=== PATIENT | female | born 1940 ===

== ENCOUNTER 2019-08-02 19:39 | Inpatient (IN) | payer MEDICARE, MEDICAID ==
[2019-08-03 07:25] VITALS: BP 147/71
[2019-08-03] MEDS: Lactobacillus Rhamnosus GG 15 Billion CFU CAP.SPRINK PO SCH (09:24)
[2019-08-03] MEDS: Benztropine 1 MG TAB PO SCH (09:25)
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
[2019-08-04] MEDS: Lactobacillus Rhamnosus GG 15 Billion CFU CAP.SPRINK PO SCH (09:26)
[2019-08-04] MEDS: Benztropine 1 MG TAB PO SCH (09:27)
--- NOTE | 2019-08-04 11:13 | Progress Notes ---
DATE: 08/04/2019 SUBJECTIVE: The patient was seen in her room. The patient is awake, but poor historian due to medical condition, appears to be guarded, easily gets frustrated, has behavioral outbursts. Otherwise, the patient is in no acute distress. OBJECTIVE: VITAL SIGNS: Temperature 97.1, heart rate of 88, respirations 18, blood pressure 98/63, 97% on room air. HEENT: Head is atraumatic and normocephalic. Eyes: Bilateral conjunctivae are clear. Bilateral pupils equal, round, reactive. NECK: Supple. No JVD. CARDIOVASCULAR: S1 and S2, without murmur. PULMONARY: Clear to auscultation. GASTROINTESTINAL: Soft and nontender without guarding. Positive bowel sounds. MUSCULOSKELETAL: No clubbing. No cyanosis noted. ASSESSMENT: 1. Dementia. 2. Osteoarthritis. 3. History of acute kidney failure. PLAN: We will continue to keep the patient to inpatient Psychiatric Unit. We will follow up with a psychiatrist to monitor the patient's condition and behavior. Treatment plans were discussed with the patient's nurse. Treatment plans were discussed with Dr. Rockwell. JOB# [id number]
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
[2019-08-05] MEDS: Benztropine 1 MG TAB PO SCH (08:32)
[2019-08-05] MEDS: Lactobacillus Rhamnosus GG 15 Billion CFU CAP.SPRINK PO SCH (08:32)
--- NOTE | 2019-08-05 12:45 | Progress Notes ---
DATE: 08/05/[address] Ahmadi. Overnight, nursing staff reported the patient has intermittent yelling and responding. Today, on [id number] evaluation, she is tearful, does not know why she is here, extremely poor historian. When attempted to discuss more detailed conversation, she derails. ASSESSMENT AND PLAN: History of schizophrenia who continues to have intermittent yelling and disorganized. We did more collateral baseline information. Per the returning physician, the patient is currently on 2 different antipsychotics -- the olanzapine and the Seroquel, which was transitioned from the outside. She denies any complications. No ____. May recommend monotherapy down the road. JOB# [id number]
--- NOTE | 2019-08-05 15:59 | Internal Medicine Prog Note ---
Internal Medicine Subjective - Subjective Service Date: 08/05/19 Patient seen and examined:: with staff Patient is:: awake, agitated, confused Patient Complaints of:: other (History of Dementia.) Per staff patient has:: agitated, noncompliant Internal Medicine Objective - Physical Exam Vitals and I&O: Vital Signs Temp 98.2 F 08/05/19 15:21 Pulse 103 08/05/19 15:21 Resp 19 08/05/19 15:21 BP 138/66 08/05/19 15:21 Pulse Ox 95 08/05/19 15:21 Intake & Output 08/04/19 08/05/19 08/05/19 18:59 06:59 18:59 Intake Total 240 Balance 240 Intake: Oral 240 Other: # Voids 2 Stool Characteristics Soft Active Medications: Current Medications Acetaminophen (Tylenol) 650 mg PO Q4HR PRN PRN Reason: Mild Pain (Scale 1-3) Stop: 10/02/19 08:17 Acetaminophen (Tylenol) 650 mg PO Q4H PRN PRN Reason: TEMP ABOVE 100 Stop: 10/02/19 08:37 Benztropine Mesylate (Cogentin) 1 mg PO DAILY [facility] Stop: 10/02/19 08:59 Last Admin: 08/05/19 08:32 Dose: 1 mg Donepezil HCl (Aricept) 10 mg PO DAILY [facility] Stop: 10/02/19 08:59 Last Admin: 08/05/19 08:32 Dose: 10 mg Lactobacillus Rhamnosus (Culturelle 15b) 1 each PO DAILY [facility] Stop: 10/02/19 08:59 Last Admin: 08/05/19 08:32 Dose: 1 each Lorazepam (Ativan) 0.5 mg PO Q4HR PRN; Protocol PRN Reason: Agitation Stop: 09/02/19 08:17 Last Admin: 08/04/19 19:28 Dose: 0.5 mg Nitrofurantoin Macrocrystals (Macrobid) 100 mg PO BID [facility]; Protocol Stop: 10/02/19 08:59 Last Admin: 08/05/19 08:31 Dose: 100 mg Olanzapine (Zyprexa) 5 mg PO DAILY [facility]; Protocol Stop: 10/02/19 08:59 Last Admin: 08/05/19 08:32 Dose: 5 mg Quetiapine Fumarate (Seroquel) 150 mg PO BID [facility]; Protocol Stop: 10/02/19 08:59 Last Admin: 08/05/19 08:32 Dose: 150 mg Zolpidem Tartrate (Ambien) 5 mg PO HS PRN PRN Reason: Insomnia Stop: 10/02/19 08:17 Physical Exam: Patient had episode of screaming and yelling again last night, is very demented , needs close monitoring. General: weak, demented HEENT: NC/AT Neck: Supple Lungs: CTAB Cardiovascular: RRR, Normal S1, Normal S2 Abdomen: soft, non-tender Extremities: clear Neurological: no change, disorganized, unable to follow command Internal Medicine Assmt/Plan - Assessment Assessment: Acute Psychosis. History of Toxic Encephalopathy. Acute kidney failure. Dementia. - Plan Plan: Continue meds as directed. Monitor vitals and labs. Supportive care. Monitor diet and nutritional supportive. Psych management as per Psych. Continue present care management. Nutritional Asmnt/Malnutr-PDOC - Dietary Evaluation Malnutrition Findings (Please click <Entered> for more info): see orders.
[2019-08-06] MEDS: Lactobacillus Rhamnosus GG 15 Billion CFU CAP.SPRINK PO SCH (08:56)
[2019-08-06] MEDS: Benztropine 1 MG TAB PO SCH (08:56)
--- NOTE | 2019-08-06 19:08 | Internal Medicine Prog Note ---
Internal Medicine Subjective - Subjective Service Date: 08/06/19 Patient seen and examined:: with staff Patient is:: awake, agitated, confused Patient Complaints of:: other (History of Dementia.) Per staff patient has:: agitated, noncompliant Internal Medicine Objective - Physical Exam Vitals and I&O: Vital Signs Temp 97.1 F 08/06/19 06:18 Pulse 88 08/06/19 06:18 Resp 18 08/06/19 08:00 BP 137/80 08/06/19 06:18 Pulse Ox 99 08/06/19 06:18 Intake & Output 08/06/19 08/06/19 08/07/19 06:59 18:59 06:59 Intake Total 300 580 Output Total 1 Balance 299 580 Intake: Oral 300 460 Other 120 Output: Urine/Stool Mix 1 Other: # Voids 2 3 # Bowel Movements 1 0 Stool Characteristics Soft Active Medications: Current Medications Acetaminophen (Tylenol) 650 mg PO Q4HR PRN PRN Reason: Mild Pain (Scale 1-3) Stop: 10/02/19 08:17 Acetaminophen (Tylenol) 650 mg PO Q4H PRN PRN Reason: TEMP ABOVE 100 Stop: 10/02/19 08:37 Benztropine Mesylate (Cogentin) 1 mg PO DAILY [facility] Stop: 10/02/19 08:59 Last Admin: 08/06/19 08:56 Dose: 1 mg Donepezil HCl (Aricept) 10 mg PO DAILY [facility] Stop: 10/02/19 08:59 Last Admin: 08/06/19 08:56 Dose: 10 mg Lactobacillus Rhamnosus (Culturelle 15b) 1 each PO DAILY [facility] Stop: 10/02/19 08:59 Last Admin: 08/06/19 08:56 Dose: 1 each Lorazepam (Ativan) 0.5 mg PO Q4HR PRN; Protocol PRN Reason: Agitation Stop: 09/02/19 08:17 Last Admin: 08/04/19 19:28 Dose: 0.5 mg Nitrofurantoin Macrocrystals (Macrobid) 100 mg PO BID [facility]; Protocol Stop: 10/02/19 08:59 Last Admin: 08/06/19 16:49 Dose: 100 mg Olanzapine (Zyprexa) 5 mg PO DAILY [facility]; Protocol Stop: 10/02/19 08:59 Last Admin: 08/06/19 08:56 Dose: 5 mg Quetiapine Fumarate (Seroquel) 150 mg PO BID [facility]; Protocol Stop: 10/02/19 08:59 Last Admin: 08/06/19 16:50 Dose: 150 mg Zolpidem Tartrate (Ambien) 5 mg PO HS PRN PRN Reason: Insomnia Stop: 10/02/19 08:17 Last Admin: 08/05/19 20:45 Dose: 5 mg Physical Exam: Patient is still very demented, hostile behavior, needs close monitoring. General: weak, demented HEENT: NC/AT Neck: Supple Lungs: CTAB Cardiovascular: RRR, Normal S1, Normal S2 Abdomen: soft, non-tender Extremities: clear Neurological: no change, disorganized, unable to follow command Internal Medicine Assmt/Plan - Assessment Assessment: Acute Psychosis. History of Toxic Encephalopathy. Acute kidney failure. Dementia. - Plan Plan: Continue meds as directed. Monitor vitals and labs. Supportive care. Monitor diet and nutritional supportive. Psych management as per Psych. Continue present care management. Nutritional Asmnt/Malnutr-PDOC - Dietary Evaluation Malnutrition Findings (Please click <Entered> for more info): see orders.
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
[2019-08-07] MEDS: Benztropine 1 MG TAB PO SCH (09:09)
[2019-08-07] MEDS: Lactobacillus Rhamnosus GG 15 Billion CFU CAP.SPRINK PO SCH (09:09)
--- NOTE | 2019-08-07 17:32 | Internal Medicine Prog Note ---
Internal Medicine Subjective - Subjective Service Date: 08/07/19 Patient is:: awake, agitated, confused Patient Complaints of:: other (History of Dementia.) Per staff patient has:: agitated, noncompliant Internal Medicine Objective - Results Recent Labs: Laboratory Last Values POC Glucose 91 MG/DL (70 - 105) 08/07/19 14:15 - Physical Exam Vitals and I&O: Vital Signs Temp 97.8 F 08/07/19 13:55 Pulse 95 08/07/19 13:55 Resp 20 08/07/19 13:55 BP 123/66 08/07/19 13:55 Pulse Ox 98 08/07/19 13:55 Intake & Output 08/06/19 08/07/19 08/07/19 18:59 06:59 18:59 Intake Total 580 240 Balance 580 240 Intake: Oral 460 240 Other 120 Other: # Voids 3 2 # Bowel Movements 0 Active Medications: Current Medications Acetaminophen (Tylenol) 650 mg PO Q4HR PRN PRN Reason: Mild Pain (Scale 1-3) Stop: 10/02/19 08:17 Acetaminophen (Tylenol) 650 mg PO Q4H PRN PRN Reason: TEMP ABOVE 100 Stop: 10/02/19 08:37 Benztropine Mesylate (Cogentin) 1 mg PO DAILY [facility] Stop: 10/02/19 08:59 Last Admin: 08/07/19 09:09 Dose: 1 mg Donepezil HCl (Aricept) 10 mg PO DAILY [facility] Stop: 10/02/19 08:59 Last Admin: 08/07/19 09:09 Dose: 10 mg Donepezil HCl (Aricept) 5 mg PO HS [facility] Stop: 10/06/19 20:59 Lactobacillus Rhamnosus (Culturelle 15b) 1 each PO DAILY [facility] Stop: 10/02/19 08:59 Last Admin: 08/07/19 09:09 Dose: 1 each Lorazepam (Ativan) 0.5 mg PO Q4HR PRN; Protocol PRN Reason: Agitation Stop: 09/02/19 08:17 Last Admin: 08/07/19 09:09 Dose: 0.5 mg Nitrofurantoin Macrocrystals (Macrobid) 100 mg PO BID [facility]; Protocol Stop: 10/02/19 08:59 Last Admin: 08/07/19 16:29 Dose: 100 mg Olanzapine (Zyprexa) 5 mg PO DAILY [facility]; Protocol Stop: 10/02/19 08:59 Last Admin: 08/07/19 09:08 Dose: 5 mg Quetiapine Fumarate (Seroquel) 150 mg PO BID [facility]; Protocol Stop: 10/02/19 08:59 Last Admin: 08/07/19 16:29 Dose: 150 mg Zolpidem Tartrate (Ambien) 5 mg PO HS PRN PRN Reason: Insomnia Stop: 10/02/19 08:17 Last Admin: 08/06/19 20:30 Dose: 5 mg General: weak, demented HEENT: NC/AT Neck: Supple Lungs: CTAB Cardiovascular: RRR, Normal S1, Normal S2 Abdomen: soft, non-tender Extremities: clear Neurological: no change, disorganized, unable to follow command
--- NOTE | 2019-08-07 21:36 | Progress Notes ---
DATE: 08/04/2019 SUBJECTIVE: Case was discussed with staff of the patient, reviewed records. The patient continues to be confused. She is demented. Continues to be unpredictable, impulsive, needing redirection, unable to make safe plan for self-care, easily agitated. I will be adding Aricept to her medication. So far no side effects with the medication, no sedation, no nausea, no extrapyramidal symptoms. I will continue outpatient group therapy, milieu therapy, and adjust her medication as needed. JOB# [id number]
--- NOTE | 2019-08-08 06:41 | Progress Notes ---
DATE: 08/08/2019 SUBJECTIVE: Chart was reviewed and the patient interviewed. Also discussed the patient's condition with the staff and reviewed records and labs. The patient is still severely irritable and severely agitated. The patient also is confused and she disheveled and she has a gown on the floor. Also, during my interview, the patient started yelling and screaming for no reason. She also still has difficulty following directions. Otherwise, the patient is compliant with taking her medications with no side effects. ASSESSMENT: The patient is still agitated and needs close monitoring. TREATMENT PLAN: We will monitor the patient's behavior and condition closely. Also, we will increase Zyprexa to 5 mg twice a day and decrease Aricept to 10 mg every day. The patient is taking both Zyprexa and Seroquel and it seems that Seroquel by itself was not helpful enough for the patient to control her agitation and irritability. JOB# [id number]
[2019-08-08] MEDS: Lactobacillus Rhamnosus GG 15 Billion CFU CAP.SPRINK PO SCH (09:00)
--- NOTE | 2019-08-08 09:52 | Internal Medicine Prog Note ---
Internal Medicine Subjective - Subjective Service Date: 08/08/19 Patient seen and examined:: with staff Patient is:: awake, agitated, confused Patient Complaints of:: other (History of Dementia.) Per staff patient has:: agitated, noncompliant Internal Medicine Objective - Results Recent Labs: Laboratory Last Values POC Glucose 91 MG/DL (70 - 105) 08/07/19 14:15 - Physical Exam Vitals and I&O: Vital Signs Temp 97.9 F 08/08/19 06:52 Pulse 81 08/08/19 06:52 Resp 20 08/08/19 06:52 BP 143/60 08/08/19 06:52 Pulse Ox 97 08/08/19 06:52 Intake & Output 08/07/19 08/08/19 08/08/19 18:59 06:59 18:59 Intake Total 240 Balance 240 Intake: Oral 240 Other: # Voids 3 2 # Bowel Movements 0 0 Active Medications: Current Medications Acetaminophen (Tylenol) 650 mg PO Q4HR PRN PRN Reason: Mild Pain (Scale 1-3) Stop: 10/02/19 08:17 Acetaminophen (Tylenol) 650 mg PO Q4H PRN PRN Reason: TEMP ABOVE 100 Stop: 10/02/19 08:37 Benztropine Mesylate (Cogentin) 1 mg PO DAILY [facility] Stop: 10/02/19 08:59 Last Admin: 08/07/19 09:09 Dose: 1 mg Donepezil HCl (Aricept) 10 mg PO DAILY [facility] Stop: 10/02/19 08:59 Last Admin: 08/07/19 09:09 Dose: 10 mg Lactobacillus Rhamnosus (Culturelle 15b) 1 each PO DAILY [facility] Stop: 10/02/19 08:59 Last Admin: 08/07/19 09:09 Dose: 1 each Lorazepam (Ativan) 0.5 mg PO Q4HR PRN; Protocol PRN Reason: Agitation Stop: 09/02/19 08:17 Last Admin: 08/07/19 21:19 Dose: 0.5 mg Nitrofurantoin Macrocrystals (Macrobid) 100 mg PO BID [facility]; Protocol Stop: 10/02/19 08:59 Last Admin: 08/07/19 16:29 Dose: 100 mg Olanzapine (Zyprexa) 5 mg PO BID [facility]; Protocol Stop: 10/07/19 08:59 Quetiapine Fumarate (Seroquel) 150 mg PO BID [facility]; Protocol Stop: 10/02/19 08:59 Last Admin: 08/07/19 16:29 Dose: 150 mg Zolpidem Tartrate (Ambien) 5 mg PO HS PRN PRN Reason: Insomnia Stop: 10/02/19 08:17 Last Admin: 08/07/19 22:20 Dose: 5 mg Physical Exam: Patient is very agitated and irritable, needs close monitoring. General: weak, demented HEENT: NC/AT Neck: Supple Lungs: CTAB Cardiovascular: RRR, Normal S1, Normal S2 Abdomen: soft, non-tender Extremities: clear Neurological: no change, disorganized, unable to follow command Internal Medicine Assmt/Plan - Assessment Assessment: Acute Psychosis. History of Toxic Encephalopathy. Acute kidney failure. Dementia. - Plan Plan: Continue meds as directed. Monitor vitals and labs. Supportive care. Monitor diet and nutritional supportive. Psych management as per Psych. Continue present care management. Nutritional Asmnt/Malnutr-PDOC - Dietary Evaluation Malnutrition Findings (Please click <Entered> for more info): see orders.
[2019-08-08] MEDS: Benztropine 1 MG TAB PO SCH (11:03)
[2019-08-09] MEDS: Lactobacillus Rhamnosus GG 15 Billion CFU CAP.SPRINK PO SCH (09:42)
[2019-08-09] MEDS: Benztropine 1 MG TAB PO SCH (09:42)
--- NOTE | 2019-08-09 10:42 | Internal Medicine Prog Note ---
Internal Medicine Subjective - Subjective Service Date: 08/09/19 Patient seen and examined:: with staff Patient is:: awake, agitated, confused Patient Complaints of:: other (History of Dementia.) Per staff patient has:: agitated, noncompliant Internal Medicine Objective - Results Recent Labs: Laboratory Last Values POC Glucose 91 MG/DL (70 - 105) 08/07/19 14:15 - Physical Exam Vitals and I&O: Vital Signs Temp 97.7 F 08/09/19 06:51 Pulse 78 08/09/19 06:51 Resp 20 08/09/19 06:51 BP 128/81 08/09/19 06:51 Pulse Ox 95 08/09/19 06:51 Intake & Output 08/08/19 08/09/19 08/09/19 18:59 06:59 18:59 Intake Total 800 240 Balance 800 240 Intake: Oral 800 240 Other: # Voids 3 2 # Bowel Movements 1 0 Active Medications: Current Medications Acetaminophen (Tylenol) 650 mg PO Q4HR PRN PRN Reason: Mild Pain (Scale 1-3) Stop: 10/02/19 08:17 Acetaminophen (Tylenol) 650 mg PO Q4H PRN PRN Reason: TEMP ABOVE 100 Stop: 10/02/19 08:37 Benztropine Mesylate (Cogentin) 1 mg PO DAILY [facility] Stop: 10/02/19 08:59 Last Admin: 08/09/19 09:42 Dose: 1 mg Donepezil HCl (Aricept) 10 mg PO DAILY [facility] Stop: 10/02/19 08:59 Last Admin: 08/09/19 09:42 Dose: 10 mg Lactobacillus Rhamnosus (Culturelle 15b) 1 each PO DAILY [facility] Stop: 10/02/19 08:59 Last Admin: 08/09/19 09:42 Dose: 1 each Lorazepam (Ativan) 0.5 mg PO Q4HR PRN; Protocol PRN Reason: Agitation Stop: 09/02/19 08:17 Last Admin: 08/07/19 21:19 Dose: 0.5 mg Nitrofurantoin Macrocrystals (Macrobid) 100 mg PO BID [facility]; Protocol Stop: 10/02/19 08:59 Last Admin: 08/09/19 09:42 Dose: 100 mg Olanzapine (Zyprexa) 5 mg PO BID [facility]; Protocol Stop: 10/07/19 08:59 Last Admin: 08/09/19 09:42 Dose: 5 mg Quetiapine Fumarate (Seroquel) 150 mg PO BID [facility]; Protocol Stop: 10/02/19 08:59 Last Admin: 08/09/19 09:42 Dose: 150 mg Zolpidem Tartrate (Ambien) 5 mg PO HS PRN PRN Reason: Insomnia Stop: 10/02/19 08:17 Last Admin: 08/08/19 21:19 Dose: 5 mg Physical Exam: Patient is aggressive and easily frustrated, needs close monitoring. General: weak, demented HEENT: NC/AT Neck: Supple Lungs: CTAB Cardiovascular: RRR, Normal S1, Normal S2 Abdomen: soft, non-tender Extremities: clear Neurological: no change, disorganized, unable to follow command Internal Medicine Assmt/Plan - Assessment Assessment: Acute Psychosis. History of Toxic Encephalopathy. Acute kidney failure. Dementia. - Plan Plan: Continue meds as directed. Monitor vitals and labs. Supportive care. Monitor diet and nutritional supportive. Psych management as per Psych. Continue present care management. Nutritional Asmnt/Malnutr-PDOC - Dietary Evaluation Malnutrition Findings (Please click <Entered> for more info): Nutritional Asmnt/Malnutrition Start: 08/08/19 15: 40 Text: Status: Complete Freq: Protocol: Document 08/08/19 15:40 KARTHIKEYAN (Rec: 08/08/19 15:43 KARTHIKEYAN [id number]) Nutritional Asmnt/Malnutrition Patient General Information Nutritional Screening Low Risk Diagnosis Psychosis Pertinent Medical Hx/Surgical Hx Dementia, Psychosis, Toxic Encephalopathy, Frequent Falls , AKF Subjective Information Pt is [id number] female admitted on 08/03 d/t aggressive behavior. Pt is eating an estimated 75% of meals x3 days Per Meal/ Nutrition Activity Record. Dietary is currently providing an estimated 2700 kcals and 130 gm Pro, per Pt PO intake this is providing an estimated 2025 kcals and 98gm Pro to meet 100+% kcal and 100+% Pro needs. Anthropometrics HT: 51 WT: 105 LB (47.73 kg) BMI: 19.84 (Normal) GI/ Skin Integrity GI: WNL, Flat, soft BM: / x1 I/O: 240/Not Noted Skin: WNL, dryness Carlo: 14 Diet Order: Regular Estimated Energy Needs: ( Geriatric, CBW) 4175-3148 kcals (25-30 kcals/ kg) 45-55g Pro (1.0-1.2 g/kg) 7843-1222 ml (25-30 ml/kg) Current Diet Order/ Nutrition Support Regular Pertinent Medications Culturelle 15b Pertinent Labs POC Glucose (last 24 hours): 91 Nutritional Hx/Data Height 1.55 m Height (Calculated Centimeters) 154.9 Current Weight (lbs) 47.627 kg Weight (Calculated Kilograms) 47.6 Weight (Calculated Grams) 62007.2 [place] Body Weight 105 LB (47.73 kg) % [place] Body Weight 100 Body Mass Index (BMI) 19.8 Weight Status Approriate GI Symptoms Skin Integrity/Comment: Skin: WNL, dryness Carlo: 14 Current %PO Good (75-100%) Estimated Nutritional Goals BEE in Kcals: Using Current wt Calories/Kcals/Kg 25-30 Kcals Calculated 6489-5922 Protein: Using Current wt Protein g/k.0-1.2 Protein Calculated 45-55 Fluid: ml 5725-8675 ml (25-30 ml/kg) Nutritional Problem No current Nutrition Prob Problem No nutrition diagnosis at this time. Etiology N/A Signs/Symptoms: N/A Malnutrition Related to Morbid Obesity Malnutrition related to morbid obesity No Intervention/Recommendation Comments Continue regular diet as tolerated. Expected Outcomes/Goals Expected Outcomes/Goals 1 .PO intake to continue to meet >75% of estimated nutritional needs. 2. Monitor PO intake, wt, nutrition related labs, and skin integrity. 3. F/U as low risk in 7-10 days, 08/15-
[2019-08-10] MEDS: Lactobacillus Rhamnosus GG 15 Billion CFU CAP.SPRINK PO SCH (08:15)
[2019-08-10] MEDS: Benztropine 1 MG TAB PO SCH (08:15)
--- NOTE | 2019-08-10 19:24 | Internal Medicine Prog Note ---
Internal Medicine Subjective - Subjective Service Date: 08/10/19 Patient seen and examined:: with staff Patient is:: awake, agitated, confused Patient Complaints of:: other (History of Dementia.) Per staff patient has:: no adverse event, no episodes of fall, agitated, noncompliant Internal Medicine Objective - Results Recent Labs: Laboratory Last Values POC Glucose 91 MG/DL (70 - 105) 08/07/19 14:15 - Physical Exam Vitals and I&O: Vital Signs Temp 97.1 F 08/10/19 14:00 Pulse 90 08/10/19 14:00 Resp 20 08/10/19 14:00 BP 107/49 08/10/19 14:00 Pulse Ox 98 08/10/19 14:00 Intake & Output 08/10/19 08/10/19 08/11/19 06:59 18:59 06:59 Intake Total 240 1200 Balance 240 1200 Intake: Oral 240 1200 Other: # Voids 2 # Bowel Movements 0 1 Active Medications: Current Medications Acetaminophen (Tylenol) 650 mg PO Q4HR PRN PRN Reason: Mild Pain (Scale 1-3) Stop: 10/02/19 08:17 Acetaminophen (Tylenol) 650 mg PO Q4H PRN PRN Reason: TEMP ABOVE 100 Stop: 10/02/19 08:37 Benztropine Mesylate (Cogentin) 1 mg PO DAILY [facility] Stop: 10/02/19 08:59 Last Admin: 08/10/19 08:15 Dose: 1 mg Donepezil HCl (Aricept) 10 mg PO DAILY [facility] Stop: 10/02/19 08:59 Last Admin: 08/10/19 08:15 Dose: 10 mg Lactobacillus Rhamnosus (Culturelle 15b) 1 each PO DAILY [facility] Stop: 10/02/19 08:59 Last Admin: 08/10/19 08:15 Dose: 1 each Lorazepam (Ativan) 0.5 mg PO Q4HR PRN; Protocol PRN Reason: Agitation Stop: 09/02/19 08:17 Last Admin: 08/07/19 21:19 Dose: 0.5 mg Nitrofurantoin Macrocrystals (Macrobid) 100 mg PO BID [facility]; Protocol Stop: 10/02/19 08:59 Last Admin: 08/10/19 17:17 Dose: 100 mg Quetiapine Fumarate (Seroquel) 100 mg PO DAILY [facility]; Protocol Stop: 10/09/19 08:59 Last Admin: 08/10/19 08:15 Dose: 100 mg Quetiapine Fumarate (Seroquel) 200 mg PO HS [facility]; Protocol Stop: 10/09/19 20:59 Zolpidem Tartrate (Ambien) 5 mg PO HS PRN PRN Reason: Insomnia Stop: 10/02/19 08:17 Last Admin: 08/08/19 21:19 Dose: 5 mg Physical Exam: Patient needs close monitoring, remains very irritable and hostile. General: weak, demented HEENT: NC/AT Neck: Supple Lungs: CTAB Cardiovascular: RRR, Normal S1, Normal S2 Abdomen: soft, non-tender Extremities: clear Neurological: no change, disorganized, unable to follow command Internal Medicine Assmt/Plan - Assessment Assessment: Acute Psychosis. History of Toxic Encephalopathy. Acute kidney failure. Dementia. - Plan Plan: Continue meds as directed. Monitor vitals and labs. Supportive care. Monitor diet and nutritional supportive. Psych management as per Psych. Continue present care management. Nutritional Asmnt/Malnutr-PDOC - Dietary Evaluation Malnutrition Findings (Please click <Entered> for more info): Nutritional Asmnt/Malnutrition Start: 08/08/19 15: 40 Text: Status: Complete Freq: Protocol: Document 08/08/19 15:40 KARTHIKEYAN (Rec: 08/08/19 15:43 KARTHIKEYAN [id number]) Nutritional Asmnt/Malnutrition Patient General Information Nutritional Screening Low Risk Diagnosis Psychosis Pertinent Medical Hx/Surgical Hx Dementia, Psychosis, Toxic Encephalopathy, Frequent Falls , AKF Subjective Information Pt is [id number] female admitted on 08/03 d/t aggressive behavior. Pt is eating an estimated 75% of meals x3 days Per Meal/ Nutrition Activity Record. Dietary is currently providing an estimated 2700 kcals and 130 gm Pro, per Pt PO intake this is providing an estimated 2025 kcals and 98gm Pro to meet 100+% kcal and 100+% Pro needs. Anthropometrics HT: 51 WT: 105 LB (47.73 kg) BMI: 19.84 (Normal) GI/ Skin Integrity GI: WNL, Flat, soft BM: 08/06 x1 I/O: 240/Not Noted Skin: WNL, dryness Carlo: 14 Diet Order: Regular Estimated Energy Needs: ( Geriatric, CBW) 5264-3461 kcals (25-30 kcals/ kg) 45-55g Pro (1.0-1.2 g/kg) 6401-4679 ml (25-30 ml/kg) Current Diet Order/ Nutrition Support Regular Pertinent Medications Culturelle 15b Pertinent Labs POC Glucose (last 24 hours): 91 Nutritional Hx/Data Height 1.55 m Height (Calculated Centimeters) 154.9 Current Weight (lbs) 47.627 kg Weight (Calculated Kilograms) 47.6 Weight (Calculated Grams) 31808.2 [place] Body Weight 105 LB (47.73 kg) % [place] Body Weight 100 Body Mass Index (BMI) 19.8 Weight Status Approriate GI Symptoms Skin Integrity/Comment: Skin: WNL, dryness Carlo: 14 Current %PO Good (75-100%) Estimated Nutritional Goals BEE in Kcals: Using Current wt Calories/Kcals/Kg 25-30 Kcals Calculated 5407-9203 Protein: Using Current wt Protein g/k.0-1.2 Protein Calculated 45-55 Fluid: ml 6686-5406 ml (25-30 ml/kg) Nutritional Problem No current Nutrition Prob Problem No nutrition diagnosis at this time. Etiology N/A Signs/Symptoms: N/A Malnutrition Related to Morbid Obesity Malnutrition related to morbid obesity No Intervention/Recommendation Comments Continue regular diet as tolerated. Expected Outcomes/Goals Expected Outcomes/Goals 1 .PO intake to continue to meet >75% of estimated nutritional needs. 2. Monitor PO intake, wt, nutrition related labs, and skin integrity. 3. F/U as low risk in 7-10 days, 08/15-
[2019-08-11] MEDS: Benztropine 1 MG TAB PO SCH (09:07)
[2019-08-11] MEDS: Lactobacillus Rhamnosus GG 15 Billion CFU CAP.SPRINK PO SCH (09:07)
--- NOTE | 2019-08-11 22:23 | Progress Notes ---
DATE: 08/11/2019 SUBJECTIVE: The patient is currently in the hospital, very irritable, agitated, confused, unkempt, yelling at me "what do you want, get out," refusing to speak with me. Staff noting irritability, angry, upset, not wanting to take any medicine. ASSESSMENT: The patient remains symptomatic, irritable, agitated, ongoing symptoms. JOB# [id number]
--- NOTE | 2019-08-11 22:43 | Progress Notes ---
DATE: 08/11/2019 SUBJECTIVE: The patient was seen in her room. The patient is asleep, but easily arousable. The patient is very confused, poor historian, easily gets frustrated and agitated. Otherwise, the patient is in no acute distress. OBJECTIVE: VITAL SIGNS: Temperature 97.2, heart rate of 80, blood pressure 119/64, respirations 18, and 96% on room air. HEENT: Head is atraumatic and normocephalic. Eyes: Bilateral conjunctivae are clear. Bilateral pupils are equally round and reactive. NECK: Supple. No JVD. CARDIOVASCULAR: S1 and S2, without murmur. PULMONARY: Clear to auscultation. GASTROINTESTINAL: Soft and nontender without guarding. Positive bowel sounds. MUSCULOSKELETAL: No clubbing. No cyanosis noted. ASSESSMENT: 1. Dementia. 2. Osteoarthritis. PLAN: We will keep the patient inpatient to Psychiatric Unit and we will follow up with a psychiatrist to monitor the patient's condition and behavior. Treatment plans were discussed with the patient's nurse. Treatment plans were discussed with Dr. Rockwell. JOB# [id number]
[2019-08-12] MEDS: Lactobacillus Rhamnosus GG 15 Billion CFU CAP.SPRINK PO SCH (09:10)
[2019-08-12] MEDS: Benztropine 1 MG TAB PO SCH (09:10)
--- NOTE | 2019-08-12 12:57 | Internal Medicine Prog Note ---
Internal Medicine Subjective - Subjective Patient is:: awake, agustina chair, agitated, confused Patient Complaints of:: other (History of Dementia.) Per staff patient has:: no adverse event, no episodes of fall, agitated, noncompliant Internal Medicine Objective - Results Recent Labs: Laboratory Last Values POC Glucose 91 MG/DL (70 - 105) 08/07/19 14:15 - Physical Exam Vitals and I&O: Vital Signs Temp 98.1 F 08/11/19 20:00 Pulse 94 08/11/19 20:00 Resp 18 08/11/19 20:00 BP 136/82 08/11/19 20:00 Pulse Ox 97 08/11/19 20:00 Intake & Output 08/11/19 08/12/19 08/12/19 18:59 06:59 18:59 Intake Total 1000 120 Balance 1000 120 Intake: Oral 1000 120 Other: # Voids 3 3 # Bowel Movements 1 Active Medications: Current Medications Acetaminophen (Tylenol) 650 mg PO Q4HR PRN PRN Reason: Mild Pain (Scale 1-3) Stop: 10/02/19 08:17 Acetaminophen (Tylenol) 650 mg PO Q4H PRN PRN Reason: TEMP ABOVE 100 Stop: 10/02/19 08:37 Benztropine Mesylate (Cogentin) 1 mg PO DAILY [facility] Stop: 10/02/19 08:59 Last Admin: 08/12/19 09:10 Dose: 1 mg Donepezil HCl (Aricept) 10 mg PO DAILY [facility] Stop: 10/02/19 08:59 Last Admin: 08/12/19 09:10 Dose: 10 mg Lactobacillus Rhamnosus (Culturelle 15b) 1 each PO DAILY [facility] Stop: 10/02/19 08:59 Last Admin: 08/12/19 09:10 Dose: 1 each Lorazepam (Ativan) 0.5 mg PO Q4HR PRN; Protocol PRN Reason: Agitation Stop: 09/02/19 08:17 Last Admin: 08/07/19 21:19 Dose: 0.5 mg Quetiapine Fumarate (Seroquel) 100 mg PO DAILY [facility]; Protocol Stop: 10/09/19 08:59 Last Admin: 08/12/19 09:10 Dose: 100 mg Quetiapine Fumarate (Seroquel) 200 mg PO HS [facility]; Protocol Stop: 10/09/19 20:59 Last Admin: 08/11/19 21:23 Dose: 200 mg Zolpidem Tartrate (Ambien) 5 mg PO HS PRN PRN Reason: Insomnia Stop: 10/02/19 08:17 Last Admin: 08/11/19 23:52 Dose: 5 mg General: weak, demented, NAD HEENT: NC/AT Neck: Supple Lungs: other (no acute respiratory distress) Cardiovascular: RRR Abdomen: soft, non-tender Extremities: clear Neurological: no change, disorganized, unable to follow command Internal Medicine Assmt/Plan - Assessment Assessment: Dementia OA - Plan Plan: Continue current treatment plan. Monitor Labs. Continue current medications Continue to monitor VS Monitor Diet/Nutritional support. Psych management per Psychiatry. Pain Management. PT/OT prn Safety precaution, Fall precaution, frequent nursing round. Supportive care. Continue collaborating with consulting specialists, case management and nursing team Nutritional Asmnt/Malnutr-PDOC - Dietary Evaluation Malnutrition Findings (Please click <Entered> for more info): Nutritional Asmnt/Malnutrition Start: 08/08/19 15: 40 Text: Status: Complete Freq: Protocol: Document 08/08/19 15:40 KARTHIKEYAN (Rec: 08/08/19 15:43 KARTHIKEYAN [id number]) Nutritional Asmnt/Malnutrition Patient General Information Nutritional Screening Low Risk Diagnosis Psychosis Pertinent Medical Hx/Surgical Hx Dementia, Psychosis, Toxic Encephalopathy, Frequent Falls , AKF Subjective Information Pt is [id number] female admitted on 08/03 d/t aggressive behavior. Pt is eating an estimated 75% of meals x3 days Per Meal/ Nutrition Activity Record. Dietary is currently providing an estimated 2700 kcals and 130 gm Pro, per Pt PO intake this is providing an estimated 2025 kcals and 98gm Pro to meet 100+% kcal and 100+% Pro needs. Anthropometrics HT: 51 WT: 105 LB (47.73 kg) BMI: 19.84 (Normal) GI/ Skin Integrity GI: WNL, Flat, soft BM: 08/06 x1 I/O: 240/Not Noted Skin: WNL, dryness Carlo: 14 Diet Order: Regular Estimated Energy Needs: ( Geriatric, CBW) 5100-8524 kcals (25-30 kcals/ kg) 45-55g Pro (1.0-1.2 g/kg) 0543-1094 ml (25-30 ml/kg) Current Diet Order/ Nutrition Support Regular Pertinent Medications Culturelle 15b Pertinent Labs POC Glucose (last 24 hours): 91 Nutritional Hx/Data Height 5 ft 1 in Height (Calculated Centimeters) 154.9 Current Weight (lbs) 105 lb Weight (Calculated Kilograms) 47.6 Weight (Calculated Grams) 34561.2 [place] Body Weight 105 LB (47.73 kg) % [place] Body Weight 100 Body Mass Index (BMI) 19.8 Weight Status Approriate GI Symptoms Skin Integrity/Comment: Skin: WNL, dryness Carlo: 14 Current %PO Good (75-100%) Estimated Nutritional Goals BEE in Kcals: Using Current wt Calories/Kcals/Kg 25-30 Kcals Calculated 0720-0867 Protein: Using Current wt Protein g/k.0-1.2 Protein Calculated 45-55 Fluid: ml 9555-1370 ml (25-30 ml/kg) Nutritional Problem No current Nutrition Prob Problem No nutrition diagnosis at this time. Etiology N/A Signs/Symptoms: N/A Malnutrition Related to Morbid Obesity Malnutrition related to morbid obesity No Intervention/Recommendation Comments Continue regular diet as tolerated. Expected Outcomes/Goals Expected Outcomes/Goals 1 .PO intake to continue to meet >75% of estimated nutritional needs. 2. Monitor PO intake, wt, nutrition related labs, and skin integrity. 3. F/U as low risk in 7-10 days, 08/15-
--- NOTE | 2019-08-13 08:04 | Progress Notes ---
DATE: DATE: 08/09/2019 SUBJECTIVE: Chart was reviewed. The patient interviewed. Also discussed the patient's condition with the staff and reviewed records and labs. The patient is still in irritable mood and she is still confused. The patient also still has disorganized thoughts. The patient also is still easily agitated and she is still easily irritable. Also, she is still having episodes of cursing at staff and yelling and screaming for no apparent reason. Otherwise, the patient continued to comply with taking her medications with no side effects of medications. ASSESSMENT: The patient is still agitated and is still in irritable mood. TREATMENT PLAN: Continue monitoring her behavior and her condition closely. Also, Zyprexa was increased yesterday to 5 mg twice a day and Aricept was increased to 10 mg every day with no side effects. We will continue same dose and continue to monitor her behavior and condition closely. [facility]# [id number]
--- NOTE | 2019-08-13 08:04 | Progress Notes ---
DATE: 08/12/2019 SUBJECTIVE: The patient is irritable, stating that she is sleeping, does not want to engage with me, whatsoever, yelling at me "go away, I'm trying to sleep," very irritable, ongoing symptoms, concerns about her ability to really be cared for at a lower level of care, still needing a Trina chair at times, erratic sleep, anxious, hyperverbal, yelling loudly. PLAN: We will continue to monitor. Continue dosing of Seroquel. I will increase her nighttime dosing of Seroquel to 225 mg, continue IM dosing as it is. JOB# [id number]
--- NOTE | 2019-08-13 08:04 | Progress Notes ---
DATE: 08/10/2019 SUBJECTIVE: Chart reviewed and the patient interviewed. Also discussed the patient's condition with the staff and reviewed records and labs. The patient is still easily agitated and is still restless. The patient also has not been able to sleep well despite of taking Ambien. The patient also still has mood swings and she is still restless. Otherwise, the patient is compliant with taking her medications with no side effects of medications. ASSESSMENT: The patient is still restless and is still in a depressed mood and agitated. TREATMENT PLAN: We will continue monitoring her behavior and condition closely. Also, we will discontinue Zyprexa since the patient is taking Seroquel and we will change Seroquel to 100 mg in the morning and 200 mg at bedtime and we will continue to follow up closely. [facility]# [id number]
[2019-08-13] MEDS: Benztropine 1 MG TAB PO SCH (08:05)
[2019-08-13] MEDS: Lactobacillus Rhamnosus GG 15 Billion CFU CAP.SPRINK PO SCH (08:06)
--- NOTE | 2019-08-13 11:00 | Internal Medicine Prog Note ---
Internal Medicine Subjective - Subjective Service Date: 08/13/19 Patient seen and examined:: with staff Patient is:: awake, agustina chair, agitated, confused Patient Complaints of:: other (History of Dementia.) Per staff patient has:: no adverse event, no episodes of fall, agitated, noncompliant Internal Medicine Objective - Results Recent Labs: Laboratory Last Values POC Glucose 91 MG/DL (70 - 105) 08/07/19 14:15 - Physical Exam Vitals and I&O: Vital Signs Temp 98.1 F 08/13/19 06:47 Pulse 90 08/13/19 06:47 Resp 18 08/13/19 06:47 BP 108/68 08/13/19 06:47 Pulse Ox 99 08/13/19 06:47 Intake & Output 08/12/19 08/13/19 08/13/19 18:59 06:59 18:59 Intake Total 900 120 Balance 900 120 Intake: Oral 900 120 Other: # Voids 3 Active Medications: Current Medications Acetaminophen (Tylenol) 650 mg PO Q4HR PRN PRN Reason: Mild Pain (Scale 1-3) Stop: 10/02/19 08:17 Acetaminophen (Tylenol) 650 mg PO Q4H PRN PRN Reason: TEMP ABOVE 100 Stop: 10/02/19 08:37 Benztropine Mesylate (Cogentin) 1 mg PO DAILY [facility] Stop: 10/02/19 08:59 Last Admin: 08/13/19 08:05 Dose: 1 mg Donepezil HCl (Aricept) 10 mg PO DAILY [facility] Stop: 10/02/19 08:59 Last Admin: 08/13/19 08:05 Dose: 10 mg Lactobacillus Rhamnosus (Culturelle 15b) 1 each PO DAILY [facility] Stop: 10/02/19 08:59 Last Admin: 08/13/19 08:06 Dose: 1 each Lorazepam (Ativan) 0.5 mg PO Q4HR PRN; Protocol PRN Reason: Agitation Stop: 09/02/19 08:17 Last Admin: 08/07/19 21:19 Dose: 0.5 mg Quetiapine Fumarate (Seroquel) 100 mg PO DAILY [facility]; Protocol Stop: 10/09/19 08:59 Last Admin: 08/13/19 08:06 Dose: 100 mg Quetiapine Fumarate 200 mg/ (Quetiapine Fumarate 25 mg) 225 mg PO HS [facility] Stop: 10/11/19 20:59 Last Admin: 08/12/19 21:01 Dose: 225 mg Zolpidem Tartrate (Ambien) 5 mg PO HS PRN PRN Reason: Insomnia Stop: 10/02/19 08:17 Last Admin: 08/12/19 21:02 Dose: 5 mg Physical Exam: Patient needs close monitoring, remains confused and weak. General: weak, demented, NAD HEENT: NC/AT Neck: Supple Lungs: other (no acute respiratory distress) Cardiovascular: RRR Abdomen: soft, non-tender Extremities: clear Neurological: no change, disorganized, unable to follow command Internal Medicine Assmt/Plan - Assessment Assessment: Acute Psychosis. History of Toxic Encephalopathy. Acute kidney failure. Dementia. - Plan Plan: Continue meds as directed. Monitor vitals and labs. Supportive care. Monitor diet and nutritional supportive. Psych management as per Psych. Continue present care management. Nutritional Asmnt/Malnutr-PDOC - Dietary Evaluation Malnutrition Findings (Please click <Entered> for more info): Nutritional Asmnt/Malnutrition Start: 08/08/19 15: 40 Text: Status: Complete Freq: Protocol: Document 08/08/19 15:40 KARTHIKEYAN (Rec: 08/08/19 15:43 KARTHIKEYAN [id number]) Nutritional Asmnt/Malnutrition Patient General Information Nutritional Screening Low Risk Diagnosis Psychosis Pertinent Medical Hx/Surgical Hx Dementia, Psychosis, Toxic Encephalopathy, Frequent Falls , AKF Subjective Information Pt is [id number] female admitted on 08/03 d/t aggressive behavior. Pt is eating an estimated 75% of meals x3 days Per Meal/ Nutrition Activity Record. Dietary is currently providing an estimated 2700 kcals and 130 gm Pro, per Pt PO intake this is providing an estimated 2025 kcals and 98gm Pro to meet 100+% kcal and 100+% Pro needs. Anthropometrics HT: 51 WT: 105 LB (47.73 kg) BMI: 19.84 (Normal) GI/ Skin Integrity GI: WNL, Flat, soft BM: 08/06 x1 I/O: 240/Not Noted Skin: WNL, dryness Carlo: 14 Diet Order: Regular Estimated Energy Needs: ( Geriatric, CBW) 7227-5491 kcals (25-30 kcals/ kg) 45-55g Pro (1.0-1.2 g/kg) 8499-1479 ml (25-30 ml/kg) Current Diet Order/ Nutrition Support Regular Pertinent Medications Culturelle 15b Pertinent Labs POC Glucose (last 24 hours): 91 Nutritional Hx/Data Height 1.55 m Height (Calculated Centimeters) 154.9 Current Weight (lbs) 47.627 kg Weight (Calculated Kilograms) 47.6 Weight (Calculated Grams) 08919.2 [place] Body Weight 105 LB (47.73 kg) % [place] Body Weight 100 Body Mass Index (BMI) 19.8 Weight Status Approriate GI Symptoms Skin Integrity/Comment: Skin: WNL, dryness Carlo: 14 Current %PO Good (75-100%) Estimated Nutritional Goals BEE in Kcals: Using Current wt Calories/Kcals/Kg 25-30 Kcals Calculated 1208-3676 Protein: Using Current wt Protein g/k.0-1.2 Protein Calculated 45-55 Fluid: ml 2403-5907 ml (25-30 ml/kg) Nutritional Problem No current Nutrition Prob Problem No nutrition diagnosis at this time. Etiology N/A Signs/Symptoms: N/A Malnutrition Related to Morbid Obesity Malnutrition related to morbid obesity No Intervention/Recommendation Comments Continue regular diet as tolerated. Expected Outcomes/Goals Expected Outcomes/Goals 1 .PO intake to continue to meet >75% of estimated nutritional needs. 2. Monitor PO intake, wt, nutrition related labs, and skin integrity. 3. F/U as low risk in 7-10 days, 08/15-
--- NOTE | 2019-08-13 22:14 | Progress Notes ---
DATE: SUBJECTIVE: Chart was reviewed and the patient interviewed. Also discussed the patient's condition with the staff and reviewed records and labs. The patient is still confused and forgetful. The patient also is still easily agitated and is still in angry and in irritable mood and when I tried to interview the patient, she screamed "get out of here." She is still restless and she still has severe mood swings and easily angry and easily irritable. Otherwise, the patient started to take her medications and according to staff, the patient did take Seroquel yesterday in a dose of 100 mg in the morning and 225 mg at bedtime. ASSESSMENT: The patient is still agitated and is still in irritable mood. TREATMENT PLAN: Continue to monitor her behavior and her condition closely. Also, continue adjusting psychotropic medications and work on behavioral modification and her compliance with taking her medications. JOB# [id number]
[2019-08-14] MEDS: Benztropine 1 MG TAB PO SCH (08:48)
[2019-08-14] MEDS: Lactobacillus Rhamnosus GG 15 Billion CFU CAP.SPRINK PO SCH (08:48)
--- NOTE | 2019-08-14 11:23 | Progress Notes ---
DATE: SUBJECTIVE: Chart reviewed and the patient interviewed. Also discussed the patient's condition with the staff and reviewed records and labs. The patient is still in angry and in irritable mood. The patient also is still having mood swings. She also is still confused and when tried to talk to her, she was restless, and she started rambling, cursing and screaming. Also, staff did report that the patient had these screaming and yelling episodes, especially during the day. Otherwise, the patient is more compliant with taking her medications with no side effects of medications. Also, slightly easier to redirect her. Also, she is still wandering into other patient's rooms. Also, personal hygiene is still poor. The patient is still unkempt. ASSESSMENT: The patient is still psychotic and agitated. TREATMENT PLAN: We will change Seroquel to be given at a dose of 75 mg twice a day and 225 mg at bedtime. Also, continue to work on behavioral modification and on her irritability ____. [facility]# [id number]
[2019-08-15] MEDS: Benztropine 1 MG TAB PO SCH (09:33)
[2019-08-15] MEDS: Lactobacillus Rhamnosus GG 15 Billion CFU CAP.SPRINK PO SCH (09:33)
--- NOTE | 2019-08-15 11:39 | Progress Notes ---
DATE: 08/15/2019 SUBJECTIVE: Chart was reviewed and the patient interviewed. Also discussed the patient's condition with the staff and reviewed records and labs. The patient is still confused. The patient also is still forgetful and is still wandering into other patient's rooms and needs lots of redirections. The patient also is still easily agitated. On the other hand, the patient continued to comply with taking her medications. Also, slight improvement in her ADLs. ASSESSMENT: The patient is still psychotic and agitated. TREATMENT PLAN: I increased Seroquel yesterday with no side effects. Continue same dose and continue monitoring her behavior and her condition closely. JOB# [id number]
--- NOTE | 2019-08-15 14:19 | Internal Medicine Prog Note ---
Internal Medicine Subjective - Subjective Service Date: 08/15/19 Patient seen and examined:: with staff Patient is:: awake, agustina chair, agitated, confused Patient Complaints of:: other (History of Dementia.) Per staff patient has:: no adverse event, no episodes of fall, agitated, noncompliant Internal Medicine Objective - Results Recent Labs: Laboratory Last Values POC Glucose 91 MG/DL (70 - 105) 08/07/19 14:15 - Physical Exam Vitals and I&O: Vital Signs Temp 98.5 F 08/15/19 08:00 Pulse 81 08/15/19 08:00 Resp 20 08/15/19 08:00 BP 138/55 08/15/19 08:00 Pulse Ox 95 08/15/19 08:00 Intake & Output 08/14/19 08/15/19 08/15/19 18:59 06:59 18:59 Intake Total 480 360 Balance 480 360 Intake: Oral 480 360 Other: # Voids 3 2 # Bowel Movements 0 0 Active Medications: Current Medications Acetaminophen (Tylenol) 650 mg PO Q4HR PRN PRN Reason: Mild Pain (Scale 1-3) Stop: 10/02/19 08:17 Acetaminophen (Tylenol) 650 mg PO Q4H PRN PRN Reason: TEMP ABOVE 100 Stop: 10/02/19 08:37 Benztropine Mesylate (Cogentin) 1 mg PO DAILY [facility] Stop: 10/02/19 08:59 Last Admin: 08/15/19 09:33 Dose: 1 mg Donepezil HCl (Aricept) 10 mg PO DAILY [facility] Stop: 10/02/19 08:59 Last Admin: 08/15/19 09:33 Dose: 10 mg Lactobacillus Rhamnosus (Culturelle 15b) 1 each PO DAILY [facility] Stop: 10/02/19 08:59 Last Admin: 08/15/19 09:33 Dose: 1 each Lorazepam (Ativan) 0.5 mg PO Q4HR PRN; Protocol PRN Reason: Agitation Stop: 09/02/19 08:17 Last Admin: 08/07/19 21:19 Dose: 0.5 mg Quetiapine Fumarate 200 mg/ (Quetiapine Fumarate 25 mg) 225 mg PO HS [facility] Stop: 10/11/19 20:59 Last Admin: 08/14/19 20:18 Dose: 225 mg Quetiapine Fumarate 50 mg/ (Quetiapine Fumarate 25 mg) 75 mg PO BID [facility] Stop: 10/13/19 08:59 Last Admin: 08/15/19 09:33 Dose: 75 mg Zolpidem Tartrate (Ambien) 5 mg PO HS PRN PRN Reason: Insomnia Stop: 10/02/19 08:17 Last Admin: 08/12/19 21:02 Dose: 5 mg Physical Exam: Patient is very forgetful, still wandering into other patients rooms, needs re- directing and close monitoring. General: weak, demented, NAD HEENT: NC/AT Neck: Supple Lungs: other (no acute respiratory distress) Cardiovascular: RRR Abdomen: soft, non-tender Extremities: clear Neurological: no change, disorganized, unable to follow command Internal Medicine Assmt/Plan - Assessment Assessment: Acute Psychosis. History of Toxic Encephalopathy. Acute kidney failure. Dementia. - Plan Plan: Continue meds as directed. Monitor vitals and labs. Supportive care. Monitor diet and nutritional supportive. Psych management as per Psych. Continue present care management. Nutritional Asmnt/Malnutr-PDOC - Dietary Evaluation Malnutrition Findings (Please click <Entered> for more info): Nutritional Asmnt/Malnutrition Start: 08/08/19 15: 40 Text: Status: Complete Freq: Protocol: Document 08/08/19 15:40 KARTHIKEYAN (Rec: 08/08/19 15:43 KARTHIKEYAN [id number]) Nutritional Asmnt/Malnutrition Patient General Information Nutritional Screening Low Risk Diagnosis Psychosis Pertinent Medical Hx/Surgical Hx Dementia, Psychosis, Toxic Encephalopathy, Frequent Falls , AKF Subjective Information Pt is [id number] female admitted on 08/03 d/t aggressive behavior. Pt is eating an estimated 75% of meals x3 days Per Meal/ Nutrition Activity Record. Dietary is currently providing an estimated 2700 kcals and 130 gm Pro, per Pt PO intake this is providing an estimated 2025 kcals and 98gm Pro to meet 100+% kcal and 100+% Pro needs. Anthropometrics HT: 51 WT: 105 LB (47.73 kg) BMI: 19.84 (Normal) GI/ Skin Integrity GI: WNL, Flat, soft BM: 08/06 x1 I/O: 240/Not Noted Skin: WNL, dryness Carlo: 14 Diet Order: Regular Estimated Energy Needs: ( Geriatric, CBW) 0358-2461 kcals (25-30 kcals/ kg) 45-55g Pro (1.0-1.2 g/kg) 7266-5452 ml (25-30 ml/kg) Current Diet Order/ Nutrition Support Regular Pertinent Medications Culturelle 15b Pertinent Labs POC Glucose (last 24 hours): 91 Nutritional Hx/Data Height 1.55 m Height (Calculated Centimeters) 154.9 Current Weight (lbs) 47.627 kg Weight (Calculated Kilograms) 47.6 Weight (Calculated Grams) 72321.2 [place] Body Weight 105 LB (47.73 kg) % [place] Body Weight 100 Body Mass Index (BMI) 19.8 Weight Status Approriate GI Symptoms Skin Integrity/Comment: Skin: WNL, dryness Carlo: 14 Current %PO Good (75-100%) Estimated Nutritional Goals BEE in Kcals: Using Current wt Calories/Kcals/Kg 25-30 Kcals Calculated 4129-1365 Protein: Using Current wt Protein g/k.0-1.2 Protein Calculated 45-55 Fluid: ml 1143-9689 ml (25-30 ml/kg) Nutritional Problem No current Nutrition Prob Problem No nutrition diagnosis at this time. Etiology N/A Signs/Symptoms: N/A Malnutrition Related to Morbid Obesity Malnutrition related to morbid obesity No Intervention/Recommendation Comments Continue regular diet as tolerated. Expected Outcomes/Goals Expected Outcomes/Goals 1 .PO intake to continue to meet >75% of estimated nutritional needs. 2. Monitor PO intake, wt, nutrition related labs, and skin integrity. 3. F/U as low risk in 7-10 days, 08/15-
--- NOTE | 2019-08-15 14:19 | Internal Medicine Prog Note ---
Internal Medicine Subjective - Subjective Service Date: 08/14/19 Patient is:: awake, agustina chair, agitated, confused Patient Complaints of:: other (History of Dementia.) Per staff patient has:: no adverse event, no episodes of fall, agitated, noncompliant Internal Medicine Objective - Results Recent Labs: Laboratory Last Values POC Glucose 91 MG/DL (70 - 105) 08/07/19 14:15 - Physical Exam Vitals and I&O: Vital Signs Temp 97.2 F 08/14/19 14:58 Pulse 85 08/14/19 14:58 Resp 20 08/14/19 14:58 BP 134/99 08/14/19 14:58 Pulse Ox 94 08/14/19 14:58 Intake & Output 08/14/19 08/14/19 08/15/19 06:59 18:59 06:59 Intake Total 120 480 Output Total 1 Balance 119 480 Intake: Oral 120 480 Output: Urine/Stool Mix 1 Other: # Voids 1 3 # Bowel Movements 1 0 Active Medications: Current Medications Acetaminophen (Tylenol) 650 mg PO Q4HR PRN PRN Reason: Mild Pain (Scale 1-3) Stop: 10/02/19 08:17 Acetaminophen (Tylenol) 650 mg PO Q4H PRN PRN Reason: TEMP ABOVE 100 Stop: 10/02/19 08:37 Benztropine Mesylate (Cogentin) 1 mg PO DAILY [facility] Stop: 10/02/19 08:59 Last Admin: 08/14/19 08:48 Dose: 1 mg Donepezil HCl (Aricept) 10 mg PO DAILY [facility] Stop: 10/02/19 08:59 Last Admin: 08/14/19 08:48 Dose: 10 mg Lactobacillus Rhamnosus (Culturelle 15b) 1 each PO DAILY [facility] Stop: 10/02/19 08:59 Last Admin: 08/14/19 08:48 Dose: 1 each Lorazepam (Ativan) 0.5 mg PO Q4HR PRN; Protocol PRN Reason: Agitation Stop: 09/02/19 08:17 Last Admin: 08/07/19 21:19 Dose: 0.5 mg Quetiapine Fumarate 200 mg/ (Quetiapine Fumarate 25 mg) 225 mg PO HS [facility] Stop: 10/11/19 20:59 Last Admin: 08/13/19 20:47 Dose: 225 mg Quetiapine Fumarate 50 mg/ (Quetiapine Fumarate 25 mg) 75 mg PO BID [facility] Stop: 10/13/19 08:59 Last Admin: 08/14/19 09:36 Dose: 75 mg Zolpidem Tartrate (Ambien) 5 mg PO HS PRN PRN Reason: Insomnia Stop: 10/02/19 08:17 Last Admin: 08/12/19 21:02 Dose: 5 mg General: weak, demented, NAD HEENT: NC/AT Neck: Supple Lungs: other (no acute respiratory distress) Cardiovascular: RRR Abdomen: soft, non-tender Extremities: clear Neurological: no change, disorganized, unable to follow command Internal Medicine Assmt/Plan - Assessment Assessment: Dementia OA - Plan Plan: Continue current treatment plan. Monitor Labs. Continue current medications Continue to monitor VS Monitor Diet/Nutritional support. Psych management per Psychiatry. Pain Management. PT/OT prn Safety precaution, Fall precaution, frequent nursing round. Supportive care. Continue collaborating with consulting specialists, case management and nursing team Nutritional Asmnt/Malnutr-PDOC - Dietary Evaluation Malnutrition Findings (Please click <Entered> for more info): Nutritional Asmnt/Malnutrition Start: 08/08/19 15: 40 Text: Status: Complete Freq: Protocol: Document 08/08/19 15:40 KARTHIKEYAN (Rec: 08/08/19 15:43 KARTHIKEYAN [id number]) Nutritional Asmnt/Malnutrition Patient General Information Nutritional Screening Low Risk Diagnosis Psychosis Pertinent Medical Hx/Surgical Hx Dementia, Psychosis, Toxic Encephalopathy, Frequent Falls , [place]F Subjective Information Pt is [id number] female admitted on 08/03 d/t aggressive behavior. Pt is eating an estimated 75% of meals x3 days Per Meal/ Nutrition Activity Record. Dietary is currently providing an estimated 2700 kcals and 130 gm Pro, per Pt PO intake this is providing an estimated 2025 kcals and 98gm Pro to meet 100+% kcal and 100+% Pro needs. Anthropometrics HT: 51 WT: 105 LB (47.73 kg) BMI: 19.84 (Normal) GI/ Skin Integrity GI: WNL, Flat, soft BM: 08/06 x1 I/O: 240/Not Noted Skin: WNL, dryness Carlo: 14 Diet Order: Regular Estimated Energy Needs: ( Geriatric, CBW) 3314-5895 kcals (25-30 kcals/ kg) 45-55g Pro (1.0-1.2 g/kg) 5735-5787 ml (25-30 ml/kg) Current Diet Order/ Nutrition Support Regular Pertinent Medications Culturelle 15b Pertinent Labs POC Glucose (last 24 hours): 91 Nutritional Hx/Data Height 5 ft 1 in Height (Calculated Centimeters) 154.9 Current Weight (lbs) 105 lb Weight (Calculated Kilograms) 47.6 Weight (Calculated Grams) 81008.2 [place] Body Weight 105 LB (47.73 kg) % [place] Body Weight 100 Body Mass Index (BMI) 19.8 Weight Status Approriate GI Symptoms Skin Integrity/Comment: Skin: WNL, dryness Carlo: 14 Current %PO Good (75-100%) Estimated Nutritional Goals BEE in Kcals: Using Current wt Calories/Kcals/Kg 25-30 Kcals Calculated 4756-7976 Protein: Using Current wt Protein g/k.0-1.2 Protein Calculated 45-55 Fluid: ml 3952-7063 ml (25-30 ml/kg) Nutritional Problem No current Nutrition Prob Problem No nutrition diagnosis at this time. Etiology N/A Signs/Symptoms: N/A Malnutrition Related to Morbid Obesity Malnutrition related to morbid obesity No Intervention/Recommendation Comments Continue regular diet as tolerated. Expected Outcomes/Goals Expected Outcomes/Goals 1 .PO intake to continue to meet >75% of estimated nutritional needs. 2. Monitor PO intake, wt, nutrition related labs, and skin integrity. 3. F/U as low risk in 7-10 days, 08/15-
[2019-08-16] MEDS: Lactobacillus Rhamnosus GG 15 Billion CFU CAP.SPRINK PO SCH (09:16)
[2019-08-16] MEDS: Benztropine 1 MG TAB PO SCH (09:16)
--- NOTE | 2019-08-16 13:30 | Internal Medicine Prog Note ---
Internal Medicine Subjective - Subjective Service Date: 08/16/19 Patient is:: awake, agustina chair, agitated, confused Patient Complaints of:: other (History of Dementia.) Per staff patient has:: no adverse event, no episodes of fall, agitated, noncompliant Internal Medicine Objective - Results Recent Labs: Laboratory Last Values POC Glucose 91 MG/DL (70 - 105) 08/07/19 14:15 - Physical Exam Vitals and I&O: Vital Signs Temp 97.5 F 08/16/19 07:07 Pulse 110 08/16/19 07:07 Resp 18 08/16/19 08:00 BP 156/90 08/16/19 07:07 Pulse Ox 98 08/16/19 07:07 Intake & Output 08/15/19 08/16/19 08/16/19 18:59 06:59 18:59 Intake Total 120 120 Balance 120 120 Intake: Oral 120 120 Other: # Voids 2 2 2 # Bowel Movements 0 0 0 Active Medications: Current Medications Acetaminophen (Tylenol) 650 mg PO Q4HR PRN PRN Reason: Mild Pain (Scale 1-3) Stop: 10/02/19 08:17 Acetaminophen (Tylenol) 650 mg PO Q4H PRN PRN Reason: TEMP ABOVE 100 Stop: 10/02/19 08:37 Benztropine Mesylate (Cogentin) 1 mg PO DAILY [facility] Stop: 10/02/19 08:59 Last Admin: 08/16/19 09:16 Dose: 1 mg Donepezil HCl (Aricept) 10 mg PO DAILY [facility] Stop: 10/02/19 08:59 Last Admin: 08/16/19 09:16 Dose: 10 mg Lactobacillus Rhamnosus (Culturelle 15b) 1 each PO DAILY [facility] Stop: 10/02/19 08:59 Last Admin: 08/16/19 09:16 Dose: 1 each Lorazepam (Ativan) 0.5 mg PO Q4HR PRN; Protocol PRN Reason: Agitation Stop: 09/02/19 08:17 Last Admin: 08/07/19 21:19 Dose: 0.5 mg Quetiapine Fumarate 200 mg/ (Quetiapine Fumarate 25 mg) 225 mg PO HS [facility] Stop: 10/11/19 20:59 Last Admin: 08/15/19 20:50 Dose: 225 mg Quetiapine Fumarate (Seroquel) 100 mg PO BID [facility] Stop: 10/15/19 08:59 Last Admin: 08/16/19 09:16 Dose: 100 mg Zolpidem Tartrate (Ambien) 5 mg PO HS PRN PRN Reason: Insomnia Stop: 10/02/19 08:17 Last Admin: 08/15/19 20:50 Dose: 5 mg General: weak, demented, NAD HEENT: NC/AT Neck: Supple Lungs: other (no acute respiratory distress) Cardiovascular: RRR Abdomen: soft, non-tender Extremities: clear Neurological: no change, disorganized, unable to follow command Internal Medicine Assmt/Plan - Assessment Assessment: Dementia OA - Plan Plan: Continue current treatment plan. Monitor Labs. Continue current medications Continue to monitor VS Monitor Diet/Nutritional support. Psych management per Psychiatry. Pain Management. PT/OT prn Safety precaution, Fall precaution, frequent nursing round. Supportive care. Continue collaborating with consulting specialists, case management and nursing team Nutritional Asmnt/Malnutr-PDOC - Dietary Evaluation Malnutrition Findings (Please click <Entered> for more info): Nutritional Asmnt/Malnutrition Start: 08/08/19 15: 40 Text: Status: Complete Freq: Protocol: Document 08/08/19 15:40 KARTHIKEYAN (Rec: 08/08/19 15:43 KARTHIKEYAN [id number]) Nutritional Asmnt/Malnutrition Patient General Information Nutritional Screening Low Risk Diagnosis Psychosis Pertinent Medical Hx/Surgical Hx Dementia, Psychosis, Toxic Encephalopathy, Frequent Falls , [place]F Subjective Information Pt is [id number] female admitted on 08/03 d/t aggressive behavior. Pt is eating an estimated 75% of meals x3 days Per Meal/ Nutrition Activity Record. Dietary is currently providing an estimated 2700 kcals and 130 gm Pro, per Pt PO intake this is providing an estimated 2025 kcals and 98gm Pro to meet 100+% kcal and 100+% Pro needs. Anthropometrics HT: 51 WT: 105 LB (47.73 kg) BMI: 19.84 (Normal) GI/ Skin Integrity GI: WNL, Flat, soft BM: 08/06 x1 I/O: 240/Not Noted Skin: WNL, dryness Carol: 14 Diet Order: Regular Estimated Energy Needs: ( Geriatric, CBW) 2478-5536 kcals (25-30 kcals/ kg) 45-55g Pro (1.0-1.2 g/kg) 2992-0442 ml (25-30 ml/kg) Current Diet Order/ Nutrition Support Regular Pertinent Medications Culturelle 15b Pertinent Labs POC Glucose (last 24 hours): 91 Nutritional Hx/Data Height 5 ft 1 in Height (Calculated Centimeters) 154.9 Current Weight (lbs) 105 lb Weight (Calculated Kilograms) 47.6 Weight (Calculated Grams) 42295.2 [place] Body Weight 105 LB (47.73 kg) % [place] Body Weight 100 Body Mass Index (BMI) 19.8 Weight Status Approriate GI Symptoms Skin Integrity/Comment: Skin: WNL, dryness Carlo: 14 Current %PO Good (75-100%) Estimated Nutritional Goals BEE in Kcals: Using Current wt Calories/Kcals/Kg 25-30 Kcals Calculated 8907-3855 Protein: Using Current wt Protein g/k.0-1.2 Protein Calculated 45-55 Fluid: ml 2032-1140 ml (25-30 ml/kg) Nutritional Problem No current Nutrition Prob Problem No nutrition diagnosis at this time. Etiology N/A Signs/Symptoms: N/A Malnutrition Related to Morbid Obesity Malnutrition related to morbid obesity No Intervention/Recommendation Comments Continue regular diet as tolerated. Expected Outcomes/Goals Expected Outcomes/Goals 1 .PO intake to continue to meet >75% of estimated nutritional needs. 2. Monitor PO intake, wt, nutrition related labs, and skin integrity. 3. F/U as low risk in 7-10 days, 08/15-
[2019-08-17] MEDS: Benztropine 1 MG TAB PO SCH (08:52)
[2019-08-17] MEDS: Lactobacillus Rhamnosus GG 15 Billion CFU CAP.SPRINK PO SCH (08:52)
--- NOTE | 2019-08-17 10:47 | Internal Medicine Prog Note ---
Internal Medicine Subjective - Subjective Service Date: 08/17/19 Patient seen and examined:: with staff Patient is:: awake, agustina chair, agitated, confused Patient Complaints of:: other (History of Dementia.) Per staff patient has:: no adverse event, no episodes of fall, agitated, noncompliant Internal Medicine Objective - Results Recent Labs: Laboratory Last Values POC Glucose 91 MG/DL (70 - 105) 08/07/19 14:15 - Physical Exam Vitals and I&O: Vital Signs Temp 98.2 F 08/16/19 14:00 Pulse 89 08/16/19 14:00 Resp 20 08/16/19 14:00 BP 129/73 08/16/19 14:00 Pulse Ox 98 08/16/19 14:00 Intake & Output 08/16/19 08/17/19 08/17/19 18:59 06:59 18:59 Intake Total 980 120 Balance 980 120 Intake: Oral 860 120 Other 120 Other: # Voids 3 3 # Bowel Movements 0 Active Medications: Current Medications Acetaminophen (Tylenol) 650 mg PO Q4HR PRN PRN Reason: Mild Pain (Scale 1-3) Stop: 10/02/19 08:17 Acetaminophen (Tylenol) 650 mg PO Q4H PRN PRN Reason: TEMP ABOVE 100 Stop: 10/02/19 08:37 Benztropine Mesylate (Cogentin) 1 mg PO DAILY [facility] Stop: 10/02/19 08:59 Last Admin: 08/17/19 08:52 Dose: 1 mg Donepezil HCl (Aricept) 10 mg PO DAILY [facility] Stop: 10/02/19 08:59 Last Admin: 08/17/19 08:52 Dose: 10 mg Lactobacillus Rhamnosus (Culturelle 15b) 1 each PO DAILY [facility] Stop: 10/02/19 08:59 Last Admin: 08/17/19 08:52 Dose: 1 each Lorazepam (Ativan) 0.5 mg PO Q4HR PRN; Protocol PRN Reason: Agitation Stop: 09/02/19 08:17 Last Admin: 08/16/19 23:36 Dose: 0.5 mg Quetiapine Fumarate 200 mg/ (Quetiapine Fumarate 25 mg) 225 mg PO HS [facility] Stop: 10/11/19 20:59 Last Admin: 08/16/19 20:23 Dose: 225 mg Quetiapine Fumarate (Seroquel) 100 mg PO BID [facility] Stop: 10/15/19 08:59 Last Admin: 08/17/19 08:52 Dose: 100 mg Zolpidem Tartrate (Ambien) 5 mg PO HS PRN PRN Reason: Insomnia Stop: 10/02/19 08:17 Last Admin: 08/16/19 21:35 Dose: 5 mg Physical Exam: Patient needs close monitoring, very dis-oriented and irritable. General: weak, demented, NAD HEENT: NC/AT Neck: Supple Lungs: other (no acute respiratory distress) Cardiovascular: RRR Abdomen: soft, non-tender Extremities: clear Neurological: no change, disorganized, unable to follow command Internal Medicine Assmt/Plan - Assessment Assessment: Acute Psychosis. History of Toxic Encephalopathy. Acute kidney failure. Dementia. - Plan Plan: Continue meds as directed. Monitor vitals and labs. Supportive care. Monitor diet and nutritional supportive. Psych management as per Psych. Continue present care management. Nutritional Asmnt/Malnutr-PDOC - Dietary Evaluation Malnutrition Findings (Please click <Entered> for more info): Nutritional Asmnt/Malnutrition Start: 08/08/19 15: 40 Text: Status: Complete Freq: Protocol: Document 08/08/19 15:40 KARTHIKEYAN (Rec: 08/08/19 15:43 KARTHIKEYAN [id number]) Nutritional Asmnt/Malnutrition Patient General Information Nutritional Screening Low Risk Diagnosis Psychosis Pertinent Medical Hx/Surgical Hx Dementia, Psychosis, Toxic Encephalopathy, Frequent Falls , AKF Subjective Information Pt is [id number] female admitted on 08/03 d/t aggressive behavior. Pt is eating an estimated 75% of meals x3 days Per Meal/ Nutrition Activity Record. Dietary is currently providing an estimated 2700 kcals and 130 gm Pro, per Pt PO intake this is providing an estimated 2025 kcals and 98gm Pro to meet 100+% kcal and 100+% Pro needs. Anthropometrics HT: 51 WT: 105 LB (47.73 kg) BMI: 19.84 (Normal) GI/ Skin Integrity GI: WNL, Flat, soft BM: / x1 I/O: 240/Not Noted Skin: WNL, dryness Carlo: 14 Diet Order: Regular Estimated Energy Needs: ( Geriatric, CBW) 2336-7041 kcals (25-30 kcals/ kg) 45-55g Pro (1.0-1.2 g/kg) 5283-6687 ml (25-30 ml/kg) Current Diet Order/ Nutrition Support Regular Pertinent Medications Culturelle 15b Pertinent Labs POC Glucose (last 24 hours): 91 Nutritional Hx/Data Height 1.55 m Height (Calculated Centimeters) 154.9 Current Weight (lbs) 47.627 kg Weight (Calculated Kilograms) 47.6 Weight (Calculated Grams) 77258.2 [place] Body Weight 105 LB (47.73 kg) % [place] Body Weight 100 Body Mass Index (BMI) 19.8 Weight Status Approriate GI Symptoms Skin Integrity/Comment: Skin: WNL, dryness Carlo: 14 Current %PO Good (75-100%) Estimated Nutritional Goals BEE in Kcals: Using Current wt Calories/Kcals/Kg 25-30 Kcals Calculated 7626-3722 Protein: Using Current wt Protein g/k.0-1.2 Protein Calculated 45-55 Fluid: ml 9524-3653 ml (25-30 ml/kg) Nutritional Problem No current Nutrition Prob Problem No nutrition diagnosis at this time. Etiology N/A Signs/Symptoms: N/A Malnutrition Related to Morbid Obesity Malnutrition related to morbid obesity No Intervention/Recommendation Comments Continue regular diet as tolerated. Expected Outcomes/Goals Expected Outcomes/Goals 1 .PO intake to continue to meet >75% of estimated nutritional needs. 2. Monitor PO intake, wt, nutrition related labs, and skin integrity. 3. F/U as low risk in 7-10 days, 08/15-
--- NOTE | 2019-08-17 12:17 | Progress Notes ---
DATE: 08/16/2019 DATE OF SERVICE: 08/16/2019 SUBJECTIVE: Chart reviewed and the patient interviewed. Also discussed the patient's condition with the staff and reviewed records and labs. The patient is still confused and is still easily agitated. The patient also has been verbally abusive, cursing and aggressive. The patient also is still having thoughts of being combative. Otherwise, the patient is compliant with taking medications with no side effects of medications. ASSESSMENT: The patient is still aggressive and agitated. TREATMENT PLAN: We will increase Seroquel to 100 mg twice a day and 225 mg at bedtime. Also, continue monitoring behavior and follow up closely. [facility]# [id number]
--- NOTE | 2019-08-18 02:57 | Progress Notes ---
DATE: 08/17/2019 DATE: 08/17/2019 SUBJECTIVE: Chart was reviewed and the patient interviewed. Also discussed the patient's condition with the staff and reviewed records and labs. The patient is still in irritable mood and easily agitated. The patient also is still resisting care and she is still confused. Also, the patient has episodes of verbal abuse and the patient is verbally abusive to others. She also is still cursing. Otherwise, the patient is compliant with taking her medications, but still has combative behavior. ASSESSMENT: The patient is still agitated and aggressive. TREATMENT PLAN: Continue Seroquel 100 mg twice a day and 225 mg at bedtime. Also, continue adjusting psychotropic medications and work on behavioral modification. [facility]# [id number]
--- NOTE | 2019-08-18 08:31 | Progress Notes ---
DATE: 08/18/2019 SUBJECTIVE: The patient was seen in her room. The patient is asleep, but easily arousable. The patient is still very agitated and aggressive, needs a lot of redirection and episodes of refusing care. Otherwise, the patient appears to be in no acute distress. OBJECTIVE: VITAL SIGNS: Temperature 97.2, heart rate 93, blood pressure 128/68, respirations of 19, 93% on room air. HEENT: Head is atraumatic and normocephalic. Eyes: Bilateral conjunctivae are clear. Bilateral pupils are equally round and reactive. NECK: Supple. No JVD. CARDIOVASCULAR: S1 and S2, without murmur. PULMONARY: Clear to auscultation. GASTROINTESTINAL: Soft and nontender without guarding. Positive bowel sounds. MUSCULOSKELETAL: No clubbing, no cyanosis noted. ASSESSMENT: 1. Dementia. 2. Osteoarthritis. PLAN: We will keep the patient to inpatient Psychiatric Unit. We will follow up with a psychiatrist to monitor the patient's condition and behavior. We will put the patient on fall precautions. Treatment plans were discussed with the patient's nurse. Treatment plans were discussed with Dr. Rockwell. JOB# [id number]
[2019-08-18] MEDS: Benztropine 1 MG TAB PO SCH (08:43)
[2019-08-18] MEDS: Lactobacillus Rhamnosus GG 15 Billion CFU CAP.SPRINK PO SCH (08:43)
--- NOTE | 2019-08-18 20:02 | Progress Notes ---
DATE: SUBJECTIVE: Chart was reviewed and the patient interviewed. Also discussed the patient's condition with the staff and reviewed records and labs. The patient continued to be very confused and very forgetful. The patient also is still easily irritable and easily agitated. She also is still suspicious and paranoid and interacting minimally with others. She also is still having episodes of yelling and when tried to talk to her, she has short answers and changing subjects and asking to leave. The patient also is still confused and getting into other patient's rooms and trying to get into their bed thinking that it hurts. At the same time, the patient is compliant with taking her medications, but still has poor behavior and difficulty following directions. ASSESSMENT: The patient is still confused and agitated. TREATMENT PLAN: Continue to monitor her behavior and her condition closely. Also, increase Seroquel to 125 mg twice a day and 250 mg at bedtime and also continue Aricept to 10 mg every day and we will continue to follow up closely. [facility]# [id number]
[2019-08-19] MEDS: Benztropine 1 MG TAB PO SCH (09:11)
[2019-08-19] MEDS: Lactobacillus Rhamnosus GG 15 Billion CFU CAP.SPRINK PO SCH (09:11)
--- NOTE | 2019-08-19 11:28 | Internal Medicine Prog Note ---
Internal Medicine Subjective - Subjective Patient is:: awake, arousable, in bed, agitated, confused Patient Complaints of:: other (History of Dementia.) Per staff patient has:: no adverse event, no episodes of fall, agitated, noncompliant Internal Medicine Objective - Results Recent Labs: Laboratory Last Values POC Glucose 91 MG/DL (70 - 105) 08/07/19 14:15 - Physical Exam Vitals and I&O: Vital Signs Temp 97.9 F 08/18/19 20:16 Pulse 103 08/18/19 20:16 Resp 18 08/18/19 20:16 BP 101/53 08/18/19 20:16 Pulse Ox 96 08/18/19 20:16 Intake & Output 08/18/19 08/19/19 08/19/19 18:59 06:59 18:59 Intake Total 720 240 Output Total 1 Balance 720 239 Intake: Oral 720 240 Output: Urine/Stool Mix 1 Other: # Voids 3 2 # Bowel Movements 0 Active Medications: Current Medications Acetaminophen (Tylenol) 650 mg PO Q4HR PRN PRN Reason: Mild Pain (Scale 1-3) Stop: 10/02/19 08:17 Acetaminophen (Tylenol) 650 mg PO Q4H PRN PRN Reason: TEMP ABOVE 100 Stop: 10/02/19 08:37 Benztropine Mesylate (Cogentin) 1 mg PO DAILY [facility] Stop: 10/02/19 08:59 Last Admin: 08/19/19 09:11 Dose: 1 mg Donepezil HCl (Aricept) 10 mg PO DAILY [facility] Stop: 10/02/19 08:59 Last Admin: 08/19/19 09:11 Dose: 10 mg Lactobacillus Rhamnosus (Culturelle 15b) 1 each PO DAILY [facility] Stop: 10/02/19 08:59 Last Admin: 08/19/19 09:11 Dose: 1 each Lorazepam (Ativan) 0.5 mg PO Q4HR PRN; Protocol PRN Reason: Agitation Stop: 09/02/19 08:17 Last Admin: 08/16/19 23:36 Dose: 0.5 mg Quetiapine Fumarate 200 mg/ (Quetiapine Fumarate 50 mg) 250 mg PO HS [facility] Stop: 10/17/19 20:59 Last Admin: 08/18/19 20:53 Dose: 250 mg Quetiapine Fumarate 100 mg/ (Quetiapine Fumarate 25 mg) 125 mg PO BID [facility] Stop: 10/17/19 16:59 Last Admin: 08/19/19 09:12 Dose: 125 mg Zolpidem Tartrate (Ambien) 5 mg PO HS PRN PRN Reason: Insomnia Stop: 10/02/19 08:17 Last Admin: 08/18/19 20:54 Dose: 5 mg General: weak, demented, NAD HEENT: NC/AT Neck: Supple Lungs: other (no acute respiratory distress) Cardiovascular: RRR Abdomen: soft, non-tender Extremities: clear Neurological: no change, disorganized, unable to follow command Internal Medicine Assmt/Plan - Assessment Assessment: Dementia OA - Plan Plan: Continue current treatment plan. Monitor Labs. Continue current medications Continue to monitor VS Monitor Diet/Nutritional support. Psych management per Psychiatry. Pain Management. PT/OT prn Safety precaution, Fall precaution, frequent nursing round. Supportive care. Continue collaborating with consulting specialists, case management and nursing team Nutritional Asmnt/Malnutr-PDOC - Dietary Evaluation Malnutrition Findings (Please click <Entered> for more info): Nutritional Asmnt/Malnutrition Start: 08/08/19 15: 40 Text: Status: Complete Freq: Protocol: Document 08/08/19 15:40 KARTHIKEYAN (Rec: 08/08/19 15:43 KARTHIKEYAN [id number]) Nutritional Asmnt/Malnutrition Patient General Information Nutritional Screening Low Risk Diagnosis Psychosis Pertinent Medical Hx/Surgical Hx Dementia, Psychosis, Toxic Encephalopathy, Frequent Falls , AKF Subjective Information Pt is [id number] female admitted on 08/03 d/t aggressive behavior. Pt is eating an estimated 75% of meals x3 days Per Meal/ Nutrition Activity Record. Dietary is currently providing an estimated 2700 kcals and 130 gm Pro, per Pt PO intake this is providing an estimated 2025 kcals and 98gm Pro to meet 100+% kcal and 100+% Pro needs. Anthropometrics HT: 51 WT: 105 LB (47.73 kg) BMI: 19.84 (Normal) GI/ Skin Integrity GI: WNL, Flat, soft BM: 08/06 x1 I/O: 240/Not Noted Skin: WNL, dryness Carlo: 14 Diet Order: Regular Estimated Energy Needs: ( Geriatric, CBW) 5972-6861 kcals (25-30 kcals/ kg) 45-55g Pro (1.0-1.2 g/kg) 3212-5380 ml (25-30 ml/kg) Current Diet Order/ Nutrition Support Regular Pertinent Medications Culturelle 15b Pertinent Labs POC Glucose (last 24 hours): 91 Nutritional Hx/Data Height 5 ft 1 in Height (Calculated Centimeters) 154.9 Current Weight (lbs) 105 lb Weight (Calculated Kilograms) 47.6 Weight (Calculated Grams) 49134.2 [place] Body Weight 105 LB (47.73 kg) % [place] Body Weight 100 Body Mass Index (BMI) 19.8 Weight Status Approriate GI Symptoms Skin Integrity/Comment: Skin: WNL, dryness Carlo: 14 Current %PO Good (75-100%) Estimated Nutritional Goals BEE in Kcals: Using Current wt Calories/Kcals/Kg 25-30 Kcals Calculated 5062-9081 Protein: Using Current wt Protein g/k.0-1.2 Protein Calculated 45-55 Fluid: ml 8983-1651 ml (25-30 ml/kg) Nutritional Problem No current Nutrition Prob Problem No nutrition diagnosis at this time. Etiology N/A Signs/Symptoms: N/A Malnutrition Related to Morbid Obesity Malnutrition related to morbid obesity No Intervention/Recommendation Comments Continue regular diet as tolerated. Expected Outcomes/Goals Expected Outcomes/Goals 1 .PO intake to continue to meet >75% of estimated nutritional needs. 2. Monitor PO intake, wt, nutrition related labs, and skin integrity. 3. F/U as low risk in 7-10 days, 08/15-
[2019-08-20] MEDS: Lactobacillus Rhamnosus GG 15 Billion CFU CAP.SPRINK PO SCH (08:39)
[2019-08-20] MEDS: Benztropine 1 MG TAB PO SCH (08:40)
--- NOTE | 2019-08-20 12:43 | Internal Medicine Prog Note ---
Internal Medicine Subjective - Subjective Service Date: 08/20/19 Patient is:: awake, arousable, in bed, agitated, confused Patient Complaints of:: other (History of Dementia.) Per staff patient has:: no adverse event, no episodes of fall, agitated, noncompliant Internal Medicine Objective - Results Recent Labs: Laboratory Last Values POC Glucose 91 MG/DL (70 - 105) 08/07/19 14:15 - Physical Exam Vitals and I&O: Vital Signs Temp 97.2 F 08/20/19 11:18 Pulse 70 08/20/19 11:18 Resp 17 08/20/19 11:18 BP 128/74 08/20/19 11:18 Pulse Ox 98 08/20/19 11:18 Intake & Output 08/19/19 08/20/19 08/20/19 18:59 06:59 18:59 Intake Total 800 240 Balance 800 240 Intake: Oral 800 240 Other: # Voids 4 2 # Bowel Movements 1 Physical Exam: Patient needs close monitoring, very forgetful, confused and agitated. General: weak, demented, NAD HEENT: NC/AT Neck: Supple Lungs: other (no acute respiratory distress) Cardiovascular: RRR Abdomen: soft, non-tender Extremities: clear Neurological: no change, disorganized, unable to follow command Internal Medicine Assmt/Plan - Assessment Assessment: Acute Psychosis. History of Toxic Encephalopathy. Acute kidney failure. Dementia. - Plan Plan: Continue meds as directed. Monitor vitals and labs. Supportive care. Monitor diet and nutritional supportive. Psych management as per Psych. Continue present care management. Nutritional Asmnt/Malnutr-PDOC - Dietary Evaluation Malnutrition Findings (Please click <Entered> for more info): Nutritional Asmnt/Malnutrition Start: 08/08/19 15: 40 Text: Status: Complete Freq: Protocol: Document 08/08/19 15:40 KARTHIKEYAN (Rec: 08/08/19 15:43 KARTHIKEYAN [id number]) Nutritional Asmnt/Malnutrition Patient General Information Nutritional Screening Low Risk Diagnosis Psychosis Pertinent Medical Hx/Surgical Hx Dementia, Psychosis, Toxic Encephalopathy, Frequent Falls , AKF Subjective Information Pt is [id number] female admitted on 08/03 d/t aggressive behavior. Pt is eating an estimated 75% of meals x3 days Per Meal/ Nutrition Activity Record. Dietary is currently providing an estimated 2700 kcals and 130 gm Pro, per Pt PO intake this is providing an estimated 2025 kcals and 98gm Pro to meet 100+% kcal and 100+% Pro needs. Anthropometrics HT: 51 WT: 105 LB (47.73 kg) BMI: 19.84 (Normal) GI/ Skin Integrity GI: WNL, Flat, soft BM: / x1 I/O: 240/Not Noted Skin: WNL, dryness Carlo: 14 Diet Order: Regular Estimated Energy Needs: ( Geriatric, CBW) 8604-6669 kcals (25-30 kcals/ kg) 45-55g Pro (1.0-1.2 g/kg) 6179-1145 ml (25-30 ml/kg) Current Diet Order/ Nutrition Support Regular Pertinent Medications Culturee 15b Pertinent Labs POC Glucose (last 24 hours): 91 Nutritional Hx/Data Height 1.55 m Height (Calculated Centimeters) 154.9 Current Weight (lbs) 47.627 kg Weight (Calculated Kilograms) 47.6 Weight (Calculated Grams) 89337.2 [place] Body Weight 105 LB (47.73 kg) % [place] Body Weight 100 Body Mass Index (BMI) 19.8 Weight Status Approriate GI Symptoms Skin Integrity/Comment: Skin: WNL, dryness Carlo: 14 Current %PO Good (75-100%) Estimated Nutritional Goals BEE in Kcals: Using Current wt Calories/Kcals/Kg 25-30 Kcals Calculated 9627-9027 Protein: Using Current wt Protein g/k.0-1.2 Protein Calculated 45-55 Fluid: ml 6530-5514 ml (25-30 ml/kg) Nutritional Problem No current Nutrition Prob Problem No nutrition diagnosis at this time. Etiology N/A Signs/Symptoms: N/A Malnutrition Related to Morbid Obesity Malnutrition related to morbid obesity No Intervention/Recommendation Comments Continue regular diet as tolerated. Expected Outcomes/Goals Expected Outcomes/Goals 1 .PO intake to continue to meet >75% of estimated nutritional needs. 2. Monitor PO intake, wt, nutrition related labs, and skin integrity. 3. F/U as low risk in 7-10 days, 08/15-
== END 2019-08-20 12:25 | DRG 885 ==
LOC: GERO 08-03 07:00
PROVIDERS: ADMIT Psychiatry & Neurology Psychiatry; ATTEND Psychiatry & Neurology Psychiatry
DX: F23 Brief psychotic disorder (principal); N17.9 Acute kidney failure, unspecified; F03.91 Unspecified dementia, unspecified severity, with behavioral disturbance; M19.90 Unspecified osteoarthritis, unspecified site
CPT/HCPCS: 82948-90; 83036-90; J7051; Z7610